=== PATIENT | female | born 1955 | race Caucasian/White ===

== ENCOUNTER 2018-03-28 18:23 | Emergency (ER) | payer MEDICARE, OTHER ==
[~2018-03-28] VITALS: Ht 177.8 cm; Wt 69.5 kg
[2018-03-28] MEDS ORDERED: NAPR-56 PO (19:58)
[2018-03-28] MEDS ORDERED: ketorolac tromethamine 15mg/ml inj. IM ONE (20:00)
[2018-03-28 20:32] VITALS: BP 123/76
== END 2018-03-28 20:33 | disposition home or self-care (01) ==
LOC: ER 18:24
DX: S06.0X0A Concussion without loss of consciousness, initial encounter (principal); S16.1XXA Strain of muscle, fascia and tendon at neck level, initial encounter; Z98.890 Other specified postprocedural states; Z88.2 Allergy status to sulfonamides; Z79.899 Other long term (current) drug therapy; W22.8XXA Striking against or struck by other objects, initial encounter; Y93.89 Activity, other specified; Y92.89 Other specified places as the place of occurrence of the external cause; Y99.8 Other external cause status
CPT/HCPCS: 70450; 72125; 96372; 99284; J1885; L0172